=== PATIENT | female | born 1960 ===

== ENCOUNTER → 2020-01-09 09:37 | Outpatient (REF) | payer OTHER, SELFPAY | LOC: ANHLAB 09:37 | PROVIDERS: PCP Family Medicine; Visit Provider Nurse Practitioner | DX: C44.519 Basal cell carcinoma of skin of other part of trunk (principal) | CPT/HCPCS: 88305 ==

== ENCOUNTER → 2020-04-15 10:03 | Outpatient (REF) | payer OTHER, SELFPAY | LOC: ANHLAB 10:03 | PROVIDERS: PCP Family Medicine; Visit Provider Nurse Practitioner | DX: C44.519 Basal cell carcinoma of skin of other part of trunk (principal) | CPT/HCPCS: 88305; 88331 ==